=== PATIENT | male | born 1945 | race Caucasian/White ===

== ENCOUNTER → 2020-06-04 01:43 | Outpatient (CLI) | payer MEDICARE, OTHER, SELFPAY ==
[2020-06-04 19:35] LABS: SARS-CoV-2 RNA PCR Positive
== END ==
PROVIDERS: PCP Family Medicine; Visit Provider Otolaryngology
DX: U07.1 COVID-19 (principal)
CPT/HCPCS: C9803; U0003; U0005

== ENCOUNTER 2020-07-19 00:48 | Day surgery (SDC) | payer MEDICARE, OTHER, SELFPAY ==
[2020-05-31 08:32] VITALS: BMI 27.7
[2020-07-12 09:58] VITALS: BMI 27.6
--- NOTE | 2020-07-18 06:43 | PM.HPGS ---
History of Present Illness History of Present Illness Consent: Risks, benefits, and alternatives have been discussed and questions answered. Patient agrees to proceed with procedure. Chief complaint: Left Facial Lipoma Narrative: Reese Del Toro is a 75 year old male with a large lipoma his buccal space Review of Systems Review of Systems: All systems reviewed & are unremarkable except as noted in HPI and below PMFSH Family History Family History Father Heart problem Mother Heart problem Sibling Heart problem Grandparent Heart problem Social History Social History Smoking packs per day: 3 Smoking cigarettes per day: 60.0 Years smoked: 15 Smoking pack-years: 45.00 Smoking status: Former smoker Tobacco type: cigarettes Second hand tobacco smoke exposure: No Smoking end date: 10/18/69 Additional smoking assessment comments: STATES 3PK/DAY/QUIT AGE 34 Alcohol intake: former Alcohol use details: [facility] QUIT 2004 Substance use: never Substance use type: does not use Living arrangements: with family Additional living arrangements comments: Spiritual care concerns: No Meds Home Medications and Allergies Home Medications Medication Instructions Recorded Confirmed Type diltiazem HCl 120 mg 120 mg PO QAM 05/16/20 07/12/20 History capsule,extended release 24 hr, controlled levothyroxine 50 mcg tablet 50 mcg PO QAM 05/16/20 07/12/20 History lorazepam 0.5 mg tablet 0.5 mg PO DAILY PRN 05/16/20 07/12/20 History pantoprazole 20 mg tablet,delayed 20 mg PO BID tablet 05/16/20 07/12/20 History release tamsulosin 0.4 mg capsule 0.4 mg PO HS 05/16/20 07/12/20 History oxybutynin chloride 5 mg PO HS 05/31/20 07/12/20 History Allergies Allergy/AdvReac Type Severity Reaction Status Date / Time No Known Allergies Allergy Verified 07/12/20 09:52 Exam Narrative: Exam Narrative: chest clear heart murmurs abdomen is soft extremities negative large left facial lipoma Assessment and Plan Additional Plan plan is excision left facial lipoma
--- NOTE | 2020-07-19 06:04 | WPDHPUPDATE1 ---
History and Physical Update Update Date/Time: 07/19/20 06:04 History and Physical has been reviewed, including an updated exam of the patient. There are NO changes in the patient's condition. Risks, benefits, and alternatives have been discussed and questions answered. Patient agrees to proceed with procedure.
[2020-07-19] MEDS: LACTATED RINGERS 1,000 ML 30 ML IV CONT (06:30)
[2020-07-19 06:35] VITALS: BP 145/73; PULSE 42; RESP 16; TEMP 36.6; O2SAT 96
--- NOTE | 2020-07-19 07:07 | WPDANESEPPF ---
Anes - Initial Pre Proc Eval Procedure: Operation Date: 07/19/20 07:30 Proposed Procedures p Excision Of Left Facial Lipoma - Jared Carmona MD Date/Time: 07/19/20 07:07 Surgeon: Jared Carmona MD Pre Op Diagnosis: Left Facial Lipoma Patient Data Age: 75 Gender: M Height: 6 ft 1 in Weight: 95 kg Allergies Allergy/AdvReac Type Severity Reaction Status Date / Time No Known Allergies Allergy Verified 07/12/20 09:52 Home Medications Medication Instructions Recorded Confirmed Type diltiazem HCl 120 mg 120 mg PO QAM 05/16/20 07/12/20 History capsule,extended release 24 hr, controlled levothyroxine 50 mcg tablet 50 mcg PO QAM 05/16/20 07/12/20 History lorazepam 0.5 mg tablet 0.5 mg PO DAILY PRN 05/16/20 07/12/20 History pantoprazole 20 mg tablet,delayed 20 mg PO BID tablet 05/16/20 07/12/20 History release tamsulosin 0.4 mg capsule 0.4 mg PO HS 05/16/20 07/12/20 History oxybutynin chloride 5 mg PO HS 05/31/20 07/12/20 History Patient hx anesthesia problems: none Family hx anesthesia problems: none PMFSH Past Medical History Medical History Anxiety Hypertension Hypothyroid Family History Family History Father Heart problem Mother Heart problem Sibling Heart problem Grandparent Heart problem Social History Social History Smoking packs per day: 3 Smoking cigarettes per day: 60.0 Years smoked: 15 Smoking pack-years: 45.00 Smoking status: Former smoker Tobacco type: cigarettes Second hand tobacco smoke exposure: No Smoking end date: 10/18/69 Additional smoking assessment comments: STATES 3PK/DAY/QUIT AGE 34 Alcohol intake: former [place] use details: [place] 2004 Substance use: never Substance use type: does not use Living arrangements: with family Additional living arrangements comments: Spiritual care concerns: No Anes - Eval Final PreProcedure Day of Procedure 07/19/20 07:07 Patient weight: overweight Heart: regular rate and rhythm Lungs: clear to auscultation Airway: Mallampati scale class II Neurological: alert and oriented Last oral intake: >/= 8 hours ASA classification: III Emergent: no Anesthetic plan: proceed Anesthesia type and monitoring: general LMA and standard monitoring Informed Consent: The patient's anesthetic plan and its attendant risks and benefits were discussed with the patient/family/POA. Questions were solicited and answers provided to the satisfaction of the patient/family/POA.
[2020-07-19] MEDS: LIDO 1%/EPINEPHRINE 1:100,000 50 ML VIAL INFILTRATE (07:34)
--- NOTE | 2020-07-19 07:56 | PM.PROC ---
Procedure Note - Detailed Date of procedure: 07/19/20 Pre-op diagnosis: Left Facial Lipoma Post-op diagnosis: same Procedure performed: Procedure was excision of a facial lipoma on the left side Description of procedure: Patient was prepped and draped fashion in all esthesia the left neck sterilely prepped and draped a palpation of the lipoma above the parotid was identified incision was made inferior to the lipoma a skin flap was elevated the large lipoma was removed is also fatty tissue deep which was left undisturbed was closed with the chromic and Monocryl Anesthesia: GLMA Surgeon: Jared Carmona MD Estimated blood loss (mL): 10 Drains: No Packing: No Pathology: yes Complications: No immediate complications Condition: stable Disposition: PACU Findings: Large facial lipoma left
[2020-07-19 08:06] VITALS: BP 121/71; PULSE 84; RESP 12; TEMP 36.8; O2SAT 96
[2020-07-19 08:20] VITALS: BP 126/78; PULSE 91; RESP 12; O2SAT 95
[2020-07-19 08:35] VITALS: BP 132/79; PULSE 80; RESP 14; O2SAT 92
[2020-07-19 08:50] VITALS: BP 118/73; PULSE 64; RESP 16
[2020-07-19 09:10] VITALS: BP 115/60; PULSE 64; RESP 16
== END 2020-07-19 09:30 | disposition home or self-care (01) ==
PROVIDERS: PCP Family Medicine; Visit Provider Otolaryngology
PROC: (CPT 21012; principal; 2020-07-19 07:30)
DX: D17.0 Benign lipomatous neoplasm of skin and subcutaneous tissue of head, face and neck (principal); I10 Essential (primary) hypertension; E03.9 Hypothyroidism, unspecified; F41.9 Anxiety disorder, unspecified; Z87.891 Personal history of nicotine dependence
CPT/HCPCS: 21012; 88304; A9270; J1100; J2405; J2704; J3010; J7120